=== PATIENT | male | born 1990 | race Caucasian/White ===

== ENCOUNTER 2020-01-22 10:52 | Emergency (ER) | payer MEDICAID, SELFPAY ==
--- NOTE | 2020-01-22 10:58 | PC.NURSE ---
Spoke with employee assistance worker from [facility]. Called patient requesting to talk to this nurse, stated I just wanted to make sure patient made it to your facility safely.
[2020-01-22 11:02] VITALS: BP 119/80; PULSE 108; RESP 18; TEMP 36.6; O2SAT 99
--- NOTE | 2020-01-22 11:31 | ED.GENADULT ---
HPI - General Adult General Chief complaint: Unspecified Stated complaint: methamphetamine use carona concern Time Seen by Provider: 01/22/20 10:59 Source: patient Mode of arrival: ambulatory Limitations: no limitations History of Present Illness HPI narrative: Patient presents to the emergency department with chief complaint of concern for coronavirus exposure through Facebook or medicine for confusion. Patient states that he is a methamphetamine abuser and has been working to get into rehab. Patient states that he was on Facebook and believes that he could have gotten coronavirus through Facebook or methamphetamine use. Patient denies suicidal or homicidal ideation. Patient states that he has been seeing things that are not there and have irrational thoughts, but these are typical when he is methamphetamines. Patient states he last used methamphetamines last night. Patient denies any chest pain, shortness of breath, nausea, vomiting, diarrhea, lethargy. Patient has not had any coughing or shortness of breath. Patient has not had any recent travel or known exposure to those with coronavirus. Related Data Allergies Allergy/AdvReac Type Severity Reaction Status Date / Time No Known Drug Allergies Allergy Unknown Unknown Verified 01/22/20 11:20 Review of Systems Review of Systems: Narrative: CONSTITUTIONAL: Denies fever, chills, or sweats. EYES: Denies visual changes, redness, or discharge. ENT: Denies rhinorrhea, congestion, sore throat, or otalgia. CARDIOVASCULAR: Denies chest pain, palpitations, or edema. RESPIRATORY: Denies cough or dyspnea. GASTROINTESTINAL: Denies abdominal pain, nausea, vomiting, or diarrhea. GENITOURINARY: Denies dysuria or hematuria. SKIN: Denies rash or itching. MUSCULOSKELETAL: Denies back pain, joint pain, or myalgia. NEUROLOGIC: Reports irrational thinking and delusions denies headache, numbness, dizziness, or weakness. PSYCHIATRIC: Denies anxiety or depression. PMFSH Past Medical History Medical History (Updated 01/22/20 @ 11:37 by Joey Martinez PA-C) No known problems Social History Social History (Updated 01/22/20 @ 11:34 by Joey Martinez PA-C) Smoking status: Never smoker Alcohol use details: none Substance use: current Substance use type: methamphetamine Exam Narrative: Exam Narrative: GENERAL: Well-appearing, well-nourished. Anxious. HEAD: Normocephalic, atraumatic. EYES: PERRLA and EOMI. ENT: Nares clear, no rhinorrhea or epistaxis. Mucous membranes moist. Oropharynx without tonsillar hypertrophy exudate or other lesions. Bilateral TMs pearly brenner nonbulging NECK: Supple. No adenopathy or masses. No carotid bruits or JVD CHEST: Clear to auscultation. No respiratory distress. No wheezes rales or rhonchi HEART: Regular rate and rhythm. No murmur heard. Normal peripheral pulses. EXTREMITIES: Normal range of motion. No edema. SKIN: Warm, dry, no rash. NEURO: No focal deficits. Alert and oriented x3. PSYCH: Normal mood and affect. Course Vital Signs Vital signs: Vital Signs Temperature 97.9 F 01/22/20 11:02 Pulse Rate 108 H 01/22/20 11:02 Respiratory Rate 18 01/22/20 11:02 Blood Pressure 119/80 01/22/20 11:02 Pulse Oximetry 99 01/22/20 11:02 Temperature 97.9 F 01/22/20 11:02 Pulse Rate 108 H 01/22/20 11:02 Respiratory Rate 18 01/22/20 11:02 Blood Pressure 119/80 01/22/20 11:02 Pulse Oximetry 99 01/22/20 11:02 Medical Decision Making MDM Narrative Medical decision making narrative: Patient has come down since he was originally checked and his heart rate is no longer tachycardic 88 bpm. Discussed with patient there is low risk of coronavirus exposure to methamphetamines and there is no risk of exposure through Facebook. Instructed patient to continue with his plan to go to drug rehab and stop methamphetamine use. Patient not suicidal homicidal ideation. Patient is functional and is caring for himself at this time. He am
[2020-01-22 11:45] VITALS: BP 117/68; PULSE 68; RESP 16; O2SAT 100
== END 2020-01-22 11:45 | disposition home or self-care (01) ==
PROVIDERS: Emergency Provider Family Medicine
DX: F15.10 Other stimulant abuse, uncomplicated (principal)
CPT/HCPCS: 99281